=== PATIENT | female | born 1985 | race African-American/Black ===

== ENCOUNTER 2019-03-23 19:16 | Emergency (ER) | payer SELFPAY ==
[~2019-03-23] VITALS: Ht 165.1 cm; Wt 90.9 kg
[~2019-03-23 19:16] MED LIST: CLARITIN 1010 MG/TAB PO; CLOMID50 MG PO; DEXILANT60 MG PO; NO HOME MEDICATIONS; PEPCID 20MG TAB20 MG PO; PREDNISONE10 MG PO; PREDNISONE20 MG PO; PRENATAL VITAMI1 TA5 PO; SUDAFED 12 HOU120 MG PO; ZANTAC 150MG T150 MG PO; ZANTAC 7575 MG PO; [UNRECOGNIZED DRUG - OTHER] NS
[2019-03-23 19:23] VITALS: BP 134/78; PULSE 73; TEMP 97.3
== END 2019-03-23 21:03 | disposition left against medical advice (07) ==
LOC: COL.ER 19:16
DX: M25.511 Pain in right shoulder (principal)

== ENCOUNTER → 2019-03-25 | Outpatient (CLI) | payer OTHER | LOC: COL.RAD 12:34 | DX: M47.817 Spondylosis without myelopathy or radiculopathy, lumbosacral region (principal); M25.461 Effusion, right knee; M17.12 Unilateral primary osteoarthritis, left knee; G89.11 Acute pain due to trauma; V89.2XXA Person injured in unspecified motor-vehicle accident, traffic, initial encounter ==